=== PATIENT | female | born 1960 | race Caucasian/White ===

== ENCOUNTER 2025-03-16 11:45 | Emergency (ER) | payer BC, SELFPAY ==
[2025-03-16 11:59] VITALS: BP 165/116
[2025-03-16 12:24] LABS: % Basophils 0.9 % (0-2); % Eosinophils 3.4 % (0-6); % Immature Granulocytes 0.4 % (0-0.5); % Lymphocytes 20.8 % (20.5-51.1); % Monocytes 6.6 % (1.7-9.3); % Neutrophils 67.9 % (42.2-75.2); Absolute Basophils 0.1 10^3/uL (0-0.2); Absolute Eosinophils 0.3 10^3/uL (0-0.7); Absolute Lymphocytes 1.6 10^3/uL (1.2-3.4); Absolute Monocytes 0.5 10^3/uL (0.1-0.6); Absolute Neutrophils 5.1 10^3/uL (1.4-6.5); Hematocrit 44.3 % (37.0-47.0); Hemoglobin 15.1 g/dL (12.0-16.0); Mean Corp Hgb Conc. 34.1 g/dL (33.0-37.0); Mean Corpuscular Hgb 31.2 pg (27.0-31.0); Mean Corpuscular Volume 91.5 fL (81.0-99.0); Mean Platelet Volume 10.2 fL (7.4-10.4); Nucleated Red Blood Cells % 0 %; Platelet Count 323 10^3/uL (130-400); Red Blood Cell Count 4.84 10^6/uL (4.20-5.40); Red Cell Dist. Width 12.5 % (11.5-14.5); White Blood Cell Count 7.5 10^3/uL (4.8-10.8)
[2025-03-16 12:37] LABS: ALT (SGPT) 32 U/L (0-35); AST (SGOT) 31 U/L (14-36); Albumin 4.5 g/dl (3.5-5.0); Alkaline Phosphatase 107 U/L (38-126); Blood Urea Nitrogen 13 mg/dl (7-17); Calcium 10.2 mg/dl (8.4-10.2); Carbon Dioxide 29 mmol/L (22-30); Chloride 104 mmol/L (98-107); Glucose 119 mg/dl (70-99); Potassium 4.2 mmol/L (3.5-5.1); Sodium 142 mmol/L (135-145); Total Bilirubin 0.6 mg/dl (0.2-1.3); Total Protein 8.2 g/dl (6.3-8.2); eGFR > 60.00
[2025-03-16 12:46] LABS: Troponin I < 0.012 ng/ml
[2025-03-16 13:00] VITALS: BP 140/98
--- NOTE | 2025-03-16 13:38 | ED.GENMED ---
History of Present Illness
General
Chief Complaint: Numbness
Source: patient
Time Seen by Provider: 03/16/25 13:10
History of Present Illness
History of Present Illness:
64-year-old female presents to the emergency room complaining of left arm paresthesias and weakness. Patient states the symptoms began at 8:30 AM. Patient was already awake. She went to her family doctor who measured her blood pressure to be
165/116 prompting her to refer her to the emergency room. Patient denies any previous episodes of weakness such as this. She denies any known neck or spine issues. She denies any headache. She denies nausea, vomiting or fever. She takes
Synthroid for hypothyroidism but no other meds.
Phy Exam
Physical Exam
Physical Exam:
General: Awake, Alert, Oriented X3. No acute distress.
Vitals: unremarkable
Head: Atraumatic
Eyes: Pupils equal, EOMI
Throat: Airway intact, no exudates
Neck: Trachea midline
Lungs: Clear and equal b/l
Heart: Regular rate, no murmurs
Abd: Soft, Nontender, No pulsatile mass
Neuro: Cranial nerves intact, muscle strength equal bilaterally, cerebellar exam normal
Skin: Warm, dry, no rash
Extremities: pulses equal b/l, no edema
Course
Orders/Labs/Results
Orders:
Orders
03/16/25 12:07
CT Head W/o Iv Contrast Urgent
Comment:
Reason For Exam: arm numbness
03/16/25 12:14
C-Reactive Protein Urgent
Comment: ADD ON
Cardiovascular Evaluation Urgent
Comment: ADD ON
Complete Blood Count/With Diff Urgent
Comprehensive Metabolic Panel Urgent
Erythrocyte Sed Rate Urgent
Ferritin Urgent
Comment: ADD ON
Folate Urgent
Comment: ADD ON
Free T4 Urgent
Glycohemoglobin (HgbA1c) Urgent
Lyme Progressive Urgent
Comment: ADD ON
TSH Reflex To Free T4 Urgent
Comment: ADD ON
Troponin I Urgent
Vitamin B12 Urgent
Comment: ADD ON
03/16/25 14:02
Add On- LAB Routine
Tests Added?: folate, ferritin, TSH reflex, B12, ESR, CRP, lipid panel, hbA1c
03/16/25 14:03
MR Brain Without Contrast Routine
Comment:
Reason For Exam: LUE weakness
Recent pill cam endoscopy?: No
03/16/25 14:08
MA [place] [facility] Routine
Comment:
Reason For Exam: LUE weakness
Recent pill cam endoscopy?: No
MA Neck With Contrast Routine
Reason For Exam: LUE weakness
Recent pill cam endoscopy?: No
03/16/25 14:23
Aspirin 325 mg PO NOW STA
Clopidogrel Bisulfate [Plavix] 300 mg PO NOW STA
03/16/25 15:38
Add On- LAB Urgent
Tests Added?: lyme progressive
03/16/25 18:00
Atorvastatin [Lipitor] 40 mg PO QPM
Abnormal Lab Results
03/16/25
12:14
MCH 31.2 H pg
(27.0-31.0)
Glucose 119 H mg/dl
(70-99)
Hemoglobin A1c 5.8 H %
(4.0-5.6)
Total Cholesterol 262 H mg/dl
(50-199)
TSH (Reflex) 4.92 H uIU/ml
(0.47-4.68)
03/16/25 12:14
03/16/25 12:14
Vital Signs
Initial and Last Documented VS:
Initial Vital Signs
Temp Pulse Resp BP Pulse Ox
98.0 F 72 18 165/116 100
03/16/25 11:59 03/16/25 11:59 03/16/25 11:59 03/16/25 11:59 03/16/25 11:59
Last Documented Vital Signs
Temp Pulse Resp BP Pulse Ox
98.0 F 79 20 140/98 99
03/16/25 11:59 03/16/25 13:00 03/16/25 13:00 03/16/25 13:00 03/16/25 13:00
MDM/Problems Addressed
Differential Diagnosis Includes:
CVA, TIA, MS, other neuropathy
MDM/Problems Addressed:
Patient presents with left arm weakness, paresthesias. Onset of symptoms was at 8:30 AM. Patient was outside of the window at the time of my evaluation. In addition her NIH score is essentially 0 for me and therefore she would not be a candidate
for thrombolytics. Plain CT shows no acute abnormalities. Neurology consultation obtained. Recommendation is for hospitalization for stroke workup. Patient given a dose of aspirin and Plavix here. Ultimately the patient decided that she did not
want to stay in the hospital. She feels like her symptoms are completely gone and there is no benefit to her staying. I did explain that the reason for her to stay in the hospital is to perform additional testing so that we could identify any
potential issue which would put her at risk for further neurologic events. I explained this will include imaging of her brain with an MRI to confirm if she had a stroke or not as well as to image her cerebral vascular system and potentially an
echocardiogram. By leaving without these tests she would be at risk for another event which could significantly debilitating or if it fatal. Patient accepts these risks.
*Radiology
Radiology exam reviewed: radiology read reviewed
*Pulse Oximetry
Patient hypoxic: no
*Critical Care Note
Total Time (30-74mins, 75-104mins- exclusive of procedures): Not Applicable
ED Attending Note
-
Portions of this chart may have been created with voice recognition software.� Occasional wrong word or��sound alike� substitutions may have occurred due to the inherent limitations of voice recognition software.
Discharge Plan
Departure
Patient Disposition: Against Medical Advice
Date of Disposition: 03/16/25
Time of Disposition: 14:26
Admit to: Telemetry
Condition: Fair
Discharge Problem:
Acute CVA (cerebrovascular accident)
Instructions: BLOOD PRESSURE
Prescriptions:
New
clopidogrel [Plavix] 75 mg tablet
75 mg PO DAILY Qty: 21 0RF
No Action
levothyroxine [Synthroid] 75 mcg Tablet
75 mcg PO DAILY
Referrals:
Patrizia Amador PA [Family Provider] -
Activity Restrictions/Additional Instructions:
You are seen in the emergency room today for paresthesias and weakness in left arm. The testing that was completed here in the emergency room shows that your complete blood count is essentially normal. The chemistry testing of your blood shows a
mildly elevated glucose and a mildly elevated hemoglobin A1c which technically meets the definition of prediabetic. You should follow-up with your family doctor about this in addition you need to follow-up with your family doctor for further
testing of this left arm weakness. We discussed admitting you to the hospital to have this worked up. You would prefer to go home and have it worked up as an outpatient. We discussed that you are excepting the risk of having a more significant
stroke which could be debilitating or fatal. We recommend that you have an MRI of your brain as well as an MRA of the blood supply of your neck and brain. You should also have an echocardiogram to look for any sort of passage way between the right
and left side of your heart. Please return to the emergency room if you have any additional neurologic issues.
You should take a baby aspirin a day from now until your family doctor tells you to stop. You should also take a medication called Plavix for the next three weeks. This is standard treatment after a suspected stroke.
Interventions
Interventions:
*Risk Screen - Suicide Last Done: 03/16/25 12:02
*General Assessment Last Done: 03/16/25 12:02
*Neglect/Abuse Screening Last Done: 03/16/25 12:02
*ED COVID-19 Vaccine History Last Done: 03/16/25 12:01
*Nursing Disposition Last Done: 03/16/25 17:29
ED- Neurological Assessment Last Done: 03/16/25 13:30
Discharge Date and Time
Discharge Date/Time: 03/16/25 17:30
Print Language: MAORI
--- NOTE | 2025-03-16 13:52 | CON.NEURO4 ---
Addendum entered and electronically signed by Lam Ackerman MD 03/16/25 16:05:
Studies reviewed.
I have personally examined the patient. I reviewed and agree with the PALLIATIVE CARE NURSE's Note.
My addenda:
Awake, alert, interactive. No acute distress.
Speech intact.
Follows 2-step requests w/o difficulty. No tremor.
Extra-ocular movements grossly intact.
Facial movements full and symmetric. Hearing intact to normal conversational volume.
Normal UE movements bilaterally.
Neck: full ROM.
Chest: no dyspnea
Heart: no JVD
Ext: (-) Clubbing, (-) Cyanosis, (-) Edema
IMPRESSIONS/RECOMMENDATIONS:
Abrupt onset of left upper extremity sensory change; differential diagnosis includes acute ischemic stroke, multiple sclerosis
Check MRI of brain to determine if there are structural abnormalities producing symptomatology
Initiate dual antiplatelet therapy as listed below
Consider atorvastatin if patient has LDL greater than or equal to 70
Medical educational materials to be provided
Goal of normotension
D/W patient
All questions answered.
Will continue to follow patient. Of note is that the patient signed out AGAINST MEDICAL ADVICE.
Original Note:
Documented by User: Usha Monroy NP 03/16/25 14:48
Consultation - Neurology 4
-
CONSULTING PHYSICIAN: Lam Ackerman MD
REFERRING PHYSICIAN: ER/Dr. Brumfield
DICTATED BY: DEVON Thompson
DATE/TIME OF REQUEST: 03/16/25
DATE/TIME OF CONSULTATION: 03/16/25
Reason for Consultation: LUE weakness
History of Present Illness:
This is a 64-year-old right-handed female who has presented to the hospital with report of left upper extremity weakness and paresthesias. Patient reports that this morning she woke up in her usual state but was feeling mildly nauseous and
proceeded to have multiple bowel movements. She denies diarrhea but felt like her bowels were emptying at an unusually fast rate. About 30 minutes later, around 0830 she was in her car driving when suddenly her left arm started tingling and felt
weak. She couldn't open/close her hand. She called her PCP who brought her in for evaluation. She reports that her blood pressure typically runs low, but in her PCP's office it was elevated around 171/96 and they referred her to the ER for
evaluation. CT head was obtained on arrival and is negative for any acute findings. NIHSS was 0. Currently, she reports that her left arm feels 90% back to normal. It still has an 'odd' sensation and her finger dexterity isn't quite as fast as
usual. She denies any headache, dizziness, vision changes, speech/swallow difficulty, chest pain, palpitations, and shortness of breath. She denies any history of TIA, stroke, or events similar to this in the past and she was not taking any blood
thinning medications. She was not a candidate for TNK/IAT due to NIHSS 0.
Past Medical History: Hypothyroidism
Surgical History: Unknown.
Family History: Reviewed and noncontributory.
Social History: Cigarette smoking in her teens only.
Allergies: No known allergies.
Home Medications: See below.
Review of Symptoms:
Patient denies any fever, headache, chest pain, shortness of breath, or symptoms.
�Per the HPI.�All systems are reviewed negative except above.
Physical Exam:
The patient is afebrile, abdomen is nondistended, breathing is unlabored, skin is warm and dry, no edema.
NIH Stroke Scale:
I performed the NIH stroke scale on the patient on 03/16/25 at 1400. The patient scored 0 points on the NIH stroke scale assessment, which were assigned as follows: See below.
Neurologic Examination:
The patient is awake, alert and oriented x 3. She is able to follow commands and answer questions appropriately. There is no aphasia or dysarthria. On cranial nerve assessment, pupils are 3 mm bilateral, round and reactive to light and
accommodation. Visual iniguez are full. Extraocular movements are intact. Facial sensations are intact and bilaterally symmetrical, there is no facial asymmetry. Hearing is intact bilaterally to normal conversation volume. Tongue palate and uvula are
midline. Sternocleidomastoid strengths are full bilaterally. Motor strengths are 5/5 bilateral upper and lower extremities on medical research [place] scale. There is no drift or involuntary movement noted. Deep tendon reflexes are 2+ bilateral
upper and lower extremities and Babinski is absent bilaterally. Sensations of temperature and vibration are intact and bilaterally symmetrical. There was no extinction noted on double simultaneous stimulation. Coordination is intact by finger to
nose bilaterally. Left hand finger dexterity is mildly slow.
Lab Results: See below.
Neuro Imaging:
1. CT Head 03/16/25: No acute intracranial abnormality identified. There are some bilateral white matter hypodensities which are nonspecific, but most likely related to chronic small vessel ischemic disease.
Differentials for the patient's presentation include:
1. Concern for a small acute ischemic right hemisphere stroke producing acute left upper extremity weakness and paresthesias.
2. Hypertensive urgency.
Patient has the following risk factors for their symptoms: None known.
IV Tenecteplase/IAT candidacy: Not a candidate due to NIHSS 0.
Recommendations:
-Provide loading dose of aspirin 325mg and clopidogrel 300mg x1 now.
-Continue DAPT with aspirin 81mg and clopidogrel 75mg daily for 21 days starting tomorrow 03/17/25. After 21 days, discontinue clopidogrel and continue aspirin 81mg monotherapy indefinitely.
-MRI brain noncontrast, MRA head/neck pending.
-Goal normotension.
-LDL goal <70. Lipid panel is pending. Initiate atorvastatin 40mg daily.
-Goal normoglycemia, hbA1c is pending.
-NIHSS and neurological checks per unit guidelines.
-Provide patient with a stroke education packet.
-PT/OT evaluations.
-DVT prophylaxis.
Discussed patient care with: Dr. Ackerman, the patient
Vital Signs and Labs
-
Vital Signs and Labs:
Vital Signs
Temp Pulse Resp BP Pulse Ox
98.0 F 72 18 165/116 100
03/16/25 11:59 03/16/25 11:59 03/16/25 11:59 03/16/25 11:59 03/16/25 11:59
Lab Results
03/16/25 12:14
03/16/25 12:14
Sodium 142 mmol/L (135-145) 03/16/25 12:14
Potassium 4.2 mmol/L (3.5-5.1) 03/16/25 12:14
BUN 13 mg/dl (7-17) 03/16/25 12:14
Glucose 119 mg/dl (70-99) H 03/16/25 12:14
Calcium 10.2 mg/dl (8.4-10.2) 03/16/25 12:14
NIH Stroke Score
Subsequent NIH Scale
Date of Subsequent NIH Scale: 03/16/25
Time of Subsequent NIH Scale: 14:00
NIH Stroke Score
Level of Consciousness: 0 - Alert
LOC Questions: 0-Answers both correctly
LOC Commands: 0-Performs both correctly
Best Horizontal Gaze: 0-Normal
Visual Iniguez: 0=Normal, no visual loss
Facial Palsy: 0=Normal, symmetrical
Motor - Right Arm: 0=No drift 10 seconds
Motor - Left Arm: 0=No drift 10 seconds
Motor - Right Le-No drift 5 seconds
Motor - Left Le-No drift 5 seconds
Limb Ataxia: 0-Absent
Sensation: 0-Normal
Best Language: 0-No aphasia
Dysarthria: 0-Normal
Extinction and Inattention: 0-No abnormality
Total Score:: 0
Modified [place] (mRS) Score
Modified [place] Scale (mRS): No significant disability. Able to carry out usual activities.
Score: 1
Alteplase Contraindication
Inclusion and Exclusion criteria reviewed: Yes
Reasons for NON-Tx with Thrombolytics ABSOLUTE Exclusions: Greater than 4.5 hrs from onset of sxs
IAT Contraindications: NIHSS < 6

Documented by User: Lam Ackerman MD 03/16/25 16:03
NIH Stroke Score
NIH Stroke Score
Total Score:: 0
Modified [place] (mRS) Score
Score: 1
Past History
Past History
ED Past Medical History: Hypothyroidism
ED Past Surgical History: None
Social History
Tobacco: Non-smoker
Family History
Family History: Other (Reviewed and noncontributory)
Medications
-
Medications:
Generic Name Dose Route Start Last Admin
Trade Name Freq PRN Reason Stop Dose Admin
Atorvastatin Calcium 40 mg 03/16/25 18:00
Atorvastatin (Lipitor) 40 Mg Tablet PO 04/13/25 17:59
QPM COLIN
[2025-03-16 14:38] LABS: HDL Cholesterol 64 mg/dl; LDL Cholesterol, Calculated 174 mg/dl; Total Cholesterol 262 mg/dl (50-199); Triglyceride 123 mg/dl (10-149); Very Low Density Lipoprotein 24 mg/dl (0-30)
[2025-03-16 14:58] LABS: Erythrocyte Sed Rate 15 mm/hour (0-20)
[2025-03-16 14:59] LABS: Glycohemoglobin (HgbA1c) 5.8 % (4.0-5.6)
[2025-03-16] MEDS: ASPIRIN 325 MG PO (15:25)
[2025-03-16] MEDS: PLAVIX 300 MG PO (15:25)
[2025-03-16 15:40] LABS: TSH Reflex To Free T4 4.92 uIU/ml (0.47-4.68)
[2025-03-16 15:44] LABS: Ferritin 68.2 ng/ml (11.1-264.0)
[2025-03-16 16:07] LABS: Free T4 1.01 ng/dl (0.78-2.19)
[2025-03-16 16:15] LABS: Folate 6.9 ng/ml (2.76-20); Vitamin B12 441 pg/ml (239-931)
[2025-03-19 13:23] LABS: Lyme Antibody Screen, EIA Negative (Negative)
== END 2025-03-16 17:30 | disposition left against medical advice (07) ==
LOC: EMR 11:45
PROVIDERS: Emergency Medicine; EMERGENCY PHYSICIAN Emergency Medicine; FAMILY PHYSICIAN Family Medicine
DX: I63.9 Cerebral infarction, unspecified (principal); E03.9 Hypothyroidism, unspecified
CPT/HCPCS: 99284; 70450; 80053; 80061; 82607; 82728; 82746; 83036; 84439; 84443; 84484; 85025; 85652; 86140; 86618

== ENCOUNTER → 2025-05-19 10:12 | Outpatient (REF) | payer BC, SELFPAY | LOC: MRI 10:12 | PROVIDERS: ATTENDING PHYSICIAN Registered Nurse Critical Care Medicine; FAMILY PHYSICIAN Family Medicine | DX: R29.90 Unspecified symptoms and signs involving the nervous system (principal) | CPT/HCPCS: 70544; 70549; 70553; A9585 ==